=== PATIENT | male | born 1975 | race African-American/Black ===

== ENCOUNTER 2018-06-11 03:17 | Emergency (ER) | payer OTHER ==
[~2018-06-11] VITALS: Ht 188 cm; Wt 173.9 kg
[2018-06-11 04:32] LABS: HEMATOCRIT 36.4 % (38.0-50.0); HEMOGLOBIN 11.9 G/DL (12.5-16.6); MCH 25.4 PG (29.0-34.0); MCHC 32.7 G/DL (30.0-36.0); MCV 77.6 FL (86-99); PLATELET COUNT 300 K/uL (156-360); RBC DIS.WIDTH-CV 18.1 % (11.8-14.6); RBC DIS.WIDTH-SD 50.2 % (39-53); RED BLOOD COUNT 4.69 M/uL (4.00-5.50); WHITE BLOOD COUNT 6.9 K/uL (4.1-10.2)
[2018-06-11 04:55] LABS: CHLORIDE 105 mEq/L (99-109); POTASSIUM 4.3 mEq/L (3.7-5.4); SODIUM 140 mEq/L (136-147)
[2018-06-11 04:57] LABS: GLUCOSE 156 mg/dL (70-99)
[2018-06-11 05:00] LABS: SERUM ETHYL ALCOHOL < 10 mg/dL
[2018-06-11 05:01] LABS: CREATININE 1.1 mg/dL (0.6-1.3); GFR ESTIMATE (CALCULATED) > 59 mL/min/ (58.99-99999)
[2018-06-11 05:02] LABS: UREA NITROGEN (BUN) 13 mg/dL (9-23)
[2018-06-11 05:03] LABS: CREATINE KINASE 119 IU/L (1-294)
[2018-06-11] MEDS ORDERED: NARCAN4 MG NS (05:09)
[2018-06-11 08:16] LABS: APPEARANCE SL.HAZY ((CLEAR)); BILIRUBIN SMALL; BLOOD NEGATIVE; COLOR AMBER ((YELLOW)); GLUCOSE (STRIP) NEGATIVE; KETONES NEGATIVE; LEUKOCYTES TRACE; NITRITE NEGATIVE; PROTEIN (STRIP) 100; SPECIFIC GRAVITY 1.033 (1.000-1.030)
[2018-06-11 08:22] LABS: BACTERIA RARE /HPF; CALCIUM OXALATE CRYSTALS 1+ /HPF; EPITHELIAL CELLS RARE /HPF; HYALINE CASTS 20-30 /LPF; MUCUS 1+ /LPF; WHITE BLOOD CELLS 0-5 /HPF (0-5)
[2018-06-11 08:25] LABS: AMPHETAMINE NEGATIVE (500 ng/mL); BARBITURATES NEGATIVE (200 ng/mL); BENZODIAZEPINES NEGATIVE (150 ng/mL); BUPRENORPHINE PRESUMPTIVE POSITIVE (10 ng/mL); COCAINE NEGATIVE (150 ng/mL); METHADONE NEGATIVE (200 ng/mL); METHAMPHETAMINE NEGATIVE (500 ng/mL); OPIATES (MORPHINE) PRESUMPTIVE POSITIVE (100 ng/mL); OXYCODONE NEGATIVE (100 ng/mL); PHENCYCLIDINE NEGATIVE (25 ng/mL); PROPOXYPHENE NEGATIVE (300 ng/mL); THC CANNABINOIDS NEGATIVE (50 ng/mL); TRICYCLIC ANTIDEPRESSANTS NEGATIVE (300 ng/mL)
[2018-06-11 08:45] VITALS: BP 105/66
== END 2018-06-11 09:06 | disposition home or self-care (01) ==
LOC: EME → EDBD 03:17 → EME 09:06
PROVIDERS: Physician Assistant
DX: T40.1X1A Poisoning by heroin, accidental (unintentional), initial encounter (principal); F11.20 Opioid dependence, uncomplicated; F32.9 Major depressive disorder, single episode, unspecified
CPT/HCPCS: 80048; 81003; 82550; 84999; 85027; 90839; 93005; 99281; 99284; G0480; J7030